=== PATIENT | male | born 1955 | race Caucasian/White ===

== ENCOUNTER 2021-05-16 12:26 | Observation (INO) | payer BC ==
[2021-05-16] MEDS: Sodium Chloride 0.9% 1,000 ML IV SCH ×3 (12:40→19:22)
[2021-05-16] MEDS ORDERED: Ondansetron 4 MG/2 ML SDV IV PRN (12:56)
[2021-05-16] MEDS ORDERED: Sodium Chloride 0.9% 10 ML Syringe FLUSH PRN (12:56)
[2021-05-16] MEDS ORDERED: Iopamidol 755 Mg/ML 75 ML Bottle IVPUSH ONE (13:25)
[2021-05-16] MEDS ORDERED: Sodium Chloride 0.9% 50 ML IV SCH (13:30)
[2021-05-16] MEDS ORDERED: 50% Dextrose in Water 50 ML Syringe IVPUSH PRN (14:08)
[2021-05-16] MEDS ORDERED: Glucagon,Human Recombinant 1 MG Vial IM PRN (14:08)
[2021-05-16] MEDS ORDERED: Acetaminophen 500 MG Tab PO PRN (14:09)
--- NOTE | 2021-05-16 14:12 | CT ---
[id number] CT/CT Abdomen Pelvis W IV EXAM: CT Abdomen Pelvis W IV CLINICAL DATA: ABDOMINAL PAIN,LEUKOCYTOSIS,DIARRHEA. COMPARISON STUDY: None. FINDINGS: Coronary artery disease. Atherosclerotic calcifications of aorta and its branches. Generalized hypodensity liver consistent with hepatic steatosis. The spleen, pancreas, adrenal glands and kidneys are unremarkable. No bowel obstruction or inflammation. Colonic diverticulosis without evidence of acute diverticulitis. The appendix is visualized and appears normal. No lymphadenopathy, free fluid, or pneumoperitoneum. Postsurgical changes following complete bilateral hip arthroplasties. Scattered changes of spondylosis the spine. No fracture or osseous lesion. IMPRESSION: No acute CT findings within the abdomen or pelvis to explain the patient's symptoms. Chronic changes as above. Tyrese Corona DO 05/16/21 1104 Thank you for allowing us to participate in the care of your patient.
[2021-05-16] MEDS ORDERED: Dicyclomine 20 MG/2 ML SDV IM ONE (17:34)
[2021-05-16] MEDS ORDERED: Loperamide 2 MG Cap PO ONE (17:38)
[2021-05-16] MEDS ORDERED: Sodium Chloride 0.9% 1,000 ML IV ONE (17:40)
[2021-05-16] MEDS: Insulin Aspart 100 Units/ML 3 ML Pen SUBCUT SCH ×2 (17:52→21:54)
[2021-05-17] MEDS: Sodium Chloride 0.9% 1,000 ML IV SCH ×4 (01:55→15:32)
[2021-05-17] MEDS: Insulin Aspart 100 Units/ML 3 ML Pen SUBCUT SCH ×3 (08:25→18:18)
[2021-05-17 09:13] LABS: ANION GAP 15.3 mmol/L (5-15); CHLORIDE,CL 106 mmol/L (98-107); SODIUM,NA 141 mmol/L (136-145)
[2021-05-17] MEDS ORDERED: GABAPENTIN 600 MG PO SCH (09:30)
[2021-05-17] MEDS: Loperamide 2 MG Cap PO PRN ×2 (09:48→16:58)
[2021-05-17] MEDS: GABAPENTIN 600 MG PO SCH ×2 (09:49→09:50)
[2021-05-17] MEDS ORDERED: Amoxicillin 500 MG Cap PO SCH (12:00)
--- NOTE | 2021-05-17 12:43 | PCM.PN ---
- General Info Date of Service: 05/17/21 Subjective Update: Patient reports feeling tired this morning. He has continued to have loose stools at times. Denies nausea, abdominal pain is improved. Functional Status: Reports: Pain Controlled, Ambulating. Denies: New Symptoms - Review of Systems General: Reports: Fatigue. Denies: Fever, Chills HEENT: Reports: No Symptoms. Denies: Headaches, Sore Throat Pulmonary: Reports: No Symptoms Cardiovascular: Reports: No Symptoms Gastrointestinal: Reports: Decreased Appetite, Diarrhea, Vomiting (none since yesterday upon admission). Denies: Abdominal Pain Genitourinary: Reports: No Symptoms Musculoskeletal: Reports: No Symptoms Skin: Reports: No Symptoms Neurological: Reports: No Symptoms Psychiatric: Reports: No Symptoms - Patient Data Vitals - Most Recent: Last Vital Signs Temp 99.3 F 05/17/21 11:00 Pulse 93 05/17/21 11:00 Resp 16 05/17/21 11:00 BP 144/84 H 05/17/21 11:00 Pulse Ox 98 05/17/21 11:00 Weight - Most Recent: 196 lb I&O - Last 24 Hours: Intake & Output 05/16/21 05/17/21 05/17/21 22:59 06:59 14:59 Intake Total 960 Balance 960 Lab Results Last 24 Hours: Laboratory Results - last 24 hr 05/16/21 05/16/21 05/16/21 Range/Units 13:03 13:30 17:25 WBC (5.00-10.00) 10^3/uL RBC (4.50-6.00) 10^6/uL Hgb (13.0-17.0) g/dL Hct (40.0-52.0) % MCV (82.0-92.0) fL MCH (27.0-31.0) pg MCHC (32.0-36.0) g/dL RDW (11.5-14.5) % Plt Count (150-400) 10^3/uL MPV (7.4-10.4) fL Immature Gran % (Auto) (0.0-5.0) % Neut % (Auto) (50.0-70.0) % Lymph % (Auto) (20.0-40.0) % Anson % (Auto) (2.0-8.0) % Eos % (Auto) (1.0-3.0) % Baso % (Auto) (0.0-1.0) % Neut # (Auto) (2.50-7.00) 10^3/uL Lymph # (Auto) (1.00-4.00) 10^3/uL Anson # (Auto) (0.10-0.80) 10^3/uL Eos # (Auto) (0.10-0.30) 10^3/uL Baso # (Auto) (0.00-0.10) 10^3/uL Immature Gran # (Auto) (0.00-0.50) 10^3/uL Sodium (136-145) mmol/L Potassium (3.5-5.1) mmol/L Chloride (98-107) mmol/L Carbon Dioxide (21.0-32.0) mmol/L Anion Gap (5-15) mmol/L BUN (7-18) mg/dL Creatinine (0.51-1.17) mg/dL Est Cr Clr Drug Dosing mL/min Estimated GFR (MDRD) mL/min Glucose (70-140) mg/dL POC Glucose 272 H (70-140) mg/dL Calcium (8.7-10.3) mg/dL Total Bilirubin (0.2-1.0) mg/dL AST (15-37) U/L ALT (14-63) U/L Alkaline Phosphatase (46-116) U/L C-Reactive Protein 1.2 H (0.0-0.9) mg/dL Total Protein (6.4-8.2) g/dL Albumin (3.40-5.00) g/dL Specimen Type Urinvoid Urine Color Yellow (YELLOW) Urine Appearance Clear (CLEAR) Urine pH 5.5 (5.0-9.0) Ur Specific [place] 1.015 (1.005-1.030) Urine Protein 30 H (NEGATIVE) mg/dL Urine Glucose (UA) >=1000 H (NEGATIVE) mg/dL Urine Ketones 15 H (NEGATIVE) mg/dL Urine Occult Blood Negative (NEGATIVE) Urine Nitrite Negative (NEGATIVE) Urine Bilirubin Negative (NEGATIVE) Urine Urobilinogen 0.2 (0.2-1.0) E.U./dL Ur Leukocyte Esterase Negative (NEGATIVE) U Hyaline Cast (Auto) Moderate Urine RBC 0-5 (0-5) /HPF Urine WBC 5-10 H (0-5) /HPF Ur Epithelial Cells Not seen /LPF Amorphous Sediment Few (0/HPF) /HPF Urine Bacteria Not seen (NONE TO FEW) /HPF Granular Casts (Auto) Few Urine Mucus Many H (NEGATIVE) /LPF 05/17/21 05/17/21 05/17/21 Range/Units 07:32 08:10 08:10 WBC 14.30 H (5.00-10.00) 10^3/uL RBC 5.84 (4.50-6.00) 10^6/uL Hgb 17.1 H (13.0-17.0) g/dL Hct 49.8 (40.0-52.0) % MCV 85.3 (82.0-92.0) fL MCH 29.3 (27.0-31.0) pg MCHC 34.3 (32.0-36.0) g/dL RDW 13.6 (11.5-14.5) % Plt Count 200 (150-400) 10^3/uL MPV 9.5 (7.4-10.4) fL Immature Gran % (Auto) 0.6 (0.0-5.0) % Neut % (Auto) 72.6 H (50.0-70.0) % Lymph % (Auto) 10.5 L (20.0-40.0) % Anson % (Auto) 8.8 H (2.0-8.0) % Eos % (Auto) 7.4 H (1.0-3.0) % Baso % (Auto) 0.1 (0.0-1.0) % Neut # (Auto) 10.39 H (2.50-7.00) 10^3/uL Lymph # (Auto) 1.50 (1.00-4.00) 10^3/uL Anson # (Auto) 1.26 H (0.10-0.80) 10^3/uL Eos # (Auto) 1.06 H (0.10-0.30) 10^3/uL Baso # (Auto) 0.01 (0.00-0.10) 10^3/uL Immature Gran # (Auto) 0.08 (0.00-0.50) 10^3/uL Sodium 141 (136-145) mmol/L Potassium 3.4 L (3.5-5.1) mmol/L Chloride 106 (98-107) mmol/L Carbon Dioxide 23.1 (21.0-32.0) mmol/L Anion Gap 15.3 H (5-15) mmol/L BUN 24 H (7-18) mg/dL Creatinine 1.13 (0.51-1.17) mg/dL Est Cr Clr Drug Dosing 65.17 mL/min Estimated GFR (MDRD) > 60 mL/min Glucose 229 H (70-140) mg/dL POC Glucose 230 H (70-140) mg/dL Calcium 7.7 L (8.7-10.3) mg/dL Total Bilirubin 0.4 (0.2-1.0) mg/dL AST 12 L (15-37) U/L ALT 17 (14-63) U/L Alkaline Phosphatase 63 (46-116) U/L C-Reactive Protein (0.0-0.9) mg/dL Total Protein 5.4 L (6.4-8.2) g/dL Albumin 2.46 L (3.40-5.00) g/dL Specimen Type Urine Color (YELLOW) Urine Appearance (CLEAR) Urine pH (5.0-9.0) Ur Specific [place] (1.005-1.030) Urine Protein (NEGATIVE) mg/dL Urine Glucose (UA) (NEGATIVE) mg/dL Urine Ketones (NEGATIVE) mg/dL Urine Occult Blood (NEGATIVE) Urine Nitrite (NEGATIVE) Urine Bilirubin (NEGATIVE) Urine Urobilinogen (0.2-1.0) E.U./dL Ur Leukocyte Esterase (NEGATIVE) U Hyaline Cast (Auto) Urine RBC (0-5) /HPF Urine WBC (0-5) /HPF Ur Epithelial Cells /LPF Amorphous Sediment (0/HPF) /HPF Urine Bacteria (NONE TO FEW) /HPF Granular Casts (Auto) Urine Mucus (NEGATIVE) /LPF 05/17/21 Range/Units 11:55 WBC (5.00-10.00) 10^3/uL RBC (4.50-6.00) 10^6/uL Hgb (13.0-17.0) g/dL Hct (40.0-52.0) % MCV (82.0-92.0) fL MCH (27.0-31.0) pg MCHC (32.0-36.0) g/dL RDW (11.5-14.5) % Plt Count (150-400) 10^3/uL MPV (7.4-10.4) fL Immature Gran % (Auto) (0.0-5.0) % Neut % (Auto) (50.0-70.0) % Lymph % (Auto) (20.0-40.0) % Anson % (Auto) (2.0-8.0) % Eos % (Auto) (1.0-3.0) % Baso % (Auto) (0.0-1.0) % Neut # (Auto) (2.50-7.00) 10^3/uL Lymph # (Auto) (1.00-4.00) 10^3/uL Anson # (Auto) (0.10-0.80) 10^3/uL Eos # (Auto) (0.10-0.30) 10^3/uL Baso # (Auto) (0.00-0.10) 10^3/uL Immature Gran # (Auto) (0.00-0.50) 10^3/uL Sodium (136-145) mmol/L Potassium (3.5-5.1) mmol/L Chloride (98-107) mmol/L Carbon Dioxide (21.0-32.0) mmol/L Anion Gap (5-15) mmol/L BUN (7-18) mg/dL Creatinine (0.51-1.17) mg/dL Est Cr Clr Drug Dosing mL/min Estimated GFR (MDRD) mL/min Glucose (70-140) mg/dL POC Glucose 185 H (70-140) mg/dL Calcium (8.7-10.3) mg/dL Total Bilirubin (0.2-1.0) mg/dL AST (15-37) U/L ALT (14-63) U/L Alkaline Phosphatase (46-116) U/L C-Reactive Protein (0.0-0.9) mg/dL Total Protein (6.4-8.2) g/dL Albumin (3.40-5.00) g/dL Specimen Type Urine Color (YELLOW) Urine Appearance (CLEAR) Urine pH (5.0-9.0) Ur Specific [place] (1.005-1.030) Urine Protein (NEGATIVE) mg/dL Urine Glucose (UA) (NEGATIVE) mg/dL Urine Ketones (NEGATIVE) mg/dL Urine Occult Blood (NEGATIVE) Urine Nitrite (NEGATIVE) Urine Bilirubin (NEGATIVE) Urine Urobilinogen (0.2-1.0) E.U./dL Ur Leukocyte Esterase (NEGATIVE) U Hyaline Cast (Auto) Urine RBC (0-5) /HPF Urine WBC (0-5) /HPF Ur Epithelial Cells /LPF Amorphous Sediment (0/HPF) /HPF Urine Bacteria (NONE TO FEW) /HPF Granular Casts (Auto) Urine Mucus (NEGATIVE) /LPF Med Orders - Current: Current Medications Acetaminophen (Acetaminophen 500 Mg Tab) 1,000 mg PO BID PRN PRN Reason: Pain Amoxicillin (Amoxicillin 500 Mg Cap) 1,000 mg PO BID [facility] Last Admin: 05/17/21 12:17 Dose: 1,000 mg Documented by: Clarithromycin (Clarithromycin 500 Mg Tab) 500 mg PO BID [facility] Last Admin: 05/17/21 12:17 Dose: 500 mg Documented by: Dextrose/Water (50% Dextrose In Water 50 Ml Syringe) 50 ml IVPUSH ASDIRECTED PRN PRN Reason: Hypoglycemia Glucagon (Glucagon,Human Recombinant 1 Mg Vial) 1 mg IM ASDIRECTED PRN PRN Reason: Hypoglycemia Sodium Chloride (Normal Saline) 1,000 mls @ 999 mls/hr IV .BOLUS [facility] Last Admin: 05/16/21 12:40 Dose: 999 mls/hr Documented by: Sodium Chloride (Normal Saline) 50 mls @ 200 mls/min IV ASDIRECTED [facility] Last Admin: 05/16/21 13:56 Dose: 200 mls/min Documented by: Sodium Chloride (Normal Saline) 1,000 mls @ 150 mls/hr IV ASDIRECTED [facility] Last Admin: 05/17/21 08:39 Dose: 150 mls/hr Documented by: Insulin Aspart (Insulin Aspart 100 Units/Ml 3 Ml Pen) 0 unit SUBCUT WITHMEALSA NDBED [facility]; Protocol Last Admin: 05/17/21 08:25 Dose: 2 unit Documented by: Loperamide HCl (Loperamide 2 Mg Cap) 2 mg PO Q2H PRN PRN Reason: Diarrhea Last Admin: 05/17/21 09:48 Dose: 2 mg Documented by: Gabapentin 600 Mg (Tablet - Ptom) 600 mg PO BID [facility] Last Admin: 05/17/21 09:48 Dose: 600 mg Documented by: Omepraz[facility] ([facility] Mg Cap.Cr) [facility] Ondans[facility]ron HCl (Ondansetron 4 Mg/2 Ml Sdv) 4 mg IV Q6H PRN PRN Reason: Nausea/Vomiting Last Admin: 05/16/21 17:10 Dose: 4 mg Documented by: Sodium Chloride (Sodium Chloride 0.9% 10 Ml Syringe) 10 ml FLUSH Q8HR PRN PRN Reason: keep vein open Discontinued Medications Dicyclomine HCl (Dicyclomine 20 Mg/2 Ml Sdv) 20 mg IM ONETIME ONE Stop: 05/16/21 17:35 Last Admin: 05/16/21 17:54 Dose: 20 mg Documented by: Sodium Chloride (Normal Saline) 1,000 mls @ 999 mls/hr IV .BOLUS ONE Stop: 05/16/21 18:40 Last Admin: 05/16/21 18:18 Dose: 999 mls/hr Documented by: Iopamidol (Iopamidol 755 Mg/Ml 75 Ml Bottle) 75 ml IVPUSH ONETIME ONE Stop: 05/16/21 13:26 Last Admin: 05/16/21 13:56 Dose: 75 ml Documented by: Loperamide HCl (Loperamide 2 Mg Cap) 4 mg PO ONETIME ONE Stop: 05/16/21 17:39 Last Admin: 05/16/21 17:50 Dose: 4 mg Documented by: Gabapentin 600 Mg (Tablet - Ptom) 600 mg PO BID [facility] Last Admin: 05/17/21 09:50 Dose: Not Given Documented by: - Exam Quality Assessment: No: Supplemental Oxygen General: Alert, Oriented, Cooperative, No Acute Distress HEENT: Pupils Equal, Mucous Membr. Moist/Stuckey Neck: Supple, Trachea Midline Lungs: Clear to Auscultation, Normal Respiratory Effort. No: Crackles, Rales, Wheezing Cardiovascular: Regular Rate, Regular Rhythm, No Murmurs GI/Abdominal Exam: Soft, Non-Tender, No Distention, Abnormal Bowel Sounds (hyperactive) (Male) Exam: Deferred Back Exam: Normal Inspection, Full Range of Motion Extremities: Normal Inspection, Normal Range of Motion, Non-Tender, No Pedal E cyndie, Normal Capillary Refill Peripheral Pulses: 2+: Dorsalis Pedis (L), Dorsalis Pedis (R) Skin: Warm, Dry, Intact Neurological: No New Focal Deficit Psy/Mental Status: Alert, Normal Affect, Normal Mood - Patient Data Lab Results Last 24 hrs: Laboratory Results - last 24 hr 05/16/21 05/16/21 05/16/21 Range/Units 13:03 13:30 17:25 WBC (5.00-10.00) 10^3/uL RBC (4.50-6.00) 10^6/uL Hgb (13.0-17.0) g/dL Hct (40.0-52.0) % MCV (82.0-92.0) fL MCH (27.0-31.0) pg MCHC (32.0-36.0) g/dL RDW (11.5-14.5) % Plt Count (150-400) 10^3/uL MPV (7.4-10.4) fL Immature Gran % (Auto) (0.0-5.0) % Neut % (Auto) (50.0-70.0) % Lymph % (Auto) (20.0-40.0) % Anson % (Auto) (2.0-8.0) % Eos % (Auto) (1.0-3.0) % Baso % (Auto) (0.0-1.0) % Neut # (Auto) (2.50-7.00) 10^3/uL Lymph # (Auto) (1.00-4.00) 10^3/uL Anson # (Auto) (0.10-0.80) 10^3/uL Eos # (Auto) (0.10-0.30) 10^3/uL Baso # (Auto) (0.00-0.10) 10^3/uL Immature Gran # (Auto) (0.00-0.50) 10^3/uL Sodium (136-145) mmol/L Potassium (3.5-5.1) mmol/L Chloride (98-107) mmol/L Carbon Dioxide (21.0-32.0) mmol/L Anion Gap (5-15) mmol/L BUN (7-18) mg/dL Creatinine (0.51-1.17) mg/dL Est Cr Clr Drug Dosing mL/min Estimated GFR (MDRD) mL/min Glucose (70-140) mg/dL POC Glucose 272 H (70-140) mg/dL Calcium (8.7-10.3) mg/dL Total Bilirubin (0.2-1.0) mg/dL AST (15-37) U/L ALT (14-63) U/L Alkaline Phosphatase (46-116) U/L C-Reactive Protein 1.2 H (0.0-0.9) mg/dL Total Protein (6.4-8.2) g/dL Albumin (3.40-5.00) g/dL Specimen Type Urinvoid Urine Color Yellow (YELLOW) Urine Appearance Clear (CLEAR) Urine pH 5.5 (5.0-9.0) Ur Specific [place] 1.015 (1.005-1.030) Urine Protein 30 H (NEGATIVE) mg/dL Urine Glucose (UA) >=1000 H (NEGATIVE) mg/dL Urine Ketones 15 H (NEGATIVE) mg/dL Urine Occult Blood Negative (NEGATIVE) Urine Nitrite Negative (NEGATIVE) Urine Bilirubin Negative (NEGATIVE) Urine Urobilinogen 0.2 (0.2-1.0) E.U./dL Ur Leukocyte Esterase Negative (NEGATIVE) U Hyaline Cast (Auto) Moderate Urine RBC 0-5 (0-5) /HPF Urine WBC 5-10 H (0-5) /HPF Ur Epithelial Cells Not seen /LPF Amorphous Sediment Few (0/HPF) /HPF Urine Bacteria Not seen (NONE TO FEW) /HPF Granular Casts (Auto) Few Urine Mucus Many H (NEGATIVE) /LPF 05/17/21 05/17/21 05/17/21 Range/Units 07:32 08:10 08:10 WBC 14.30 H (5.00-10.00) 10^3/uL RBC 5.84 (4.50-6.00) 10^6/uL Hgb 17.1 H (13.0-17.0) g/dL Hct 49.8 (40.0-52.0) % MCV 85.3 (82.0-92.0) fL MCH 29.3 (27.0-31.0) pg MCHC 34.3 (32.0-36.0) g/dL RDW 13.6 (11.5-14.5) % Plt Count 200 (150-400) 10^3/uL MPV 9.5 (7.4-10.4) fL Immature Gran % (Auto) 0.6 (0.0-5.0) % Neut % (Auto) 72.6 H (50.0-70.0) % Lymph % (Auto) 10.5 L (20.0-40.0) % Anson % (Auto) 8.8 H (2.0-8.0) % Eos % (Auto) 7.4 H (1.0-3.0) % Baso % (Auto) 0.1 (0.0-1.0) % Neut # (Auto) 10.39 H (2.50-7.00) 10^3/uL Lymph # (Auto) 1.50 (1.00-4.00) 10^3/uL Anson # (Auto) 1.26 H (0.10-0.80) 10^3/uL Eos # (Auto) 1.06 H (0.10-0.30) 10^3/uL Baso # (Auto) 0.01 (0.00-0.10) 10^3/uL Immature Gran # (Auto) 0.08 (0.00-0.50) 10^3/uL Sodium 141 (136-145) mmol/L Potassium 3.4 L (3.5-5.1) mmol/L Chloride 106 (98-107) mmol/L Carbon Dioxide 23.1 (21.0-32.0) mmol/L Anion Gap 15.3 H (5-15) mmol/L BUN 24 H (7-18) mg/dL Creatinine 1.13 (0.51-1.17) mg/dL Est Cr Clr Drug Dosing 65.17 mL/min Estimated GFR (MDRD) > 60 mL/min Glucose 229 H (70-140) mg/dL POC Glucose 230 H (70-140) mg/dL Calcium 7.7 L (8.7-10.3) mg/dL Total Bilirubin 0.4 (0.2-1.0) mg/dL AST 12 L (15-37) U/L ALT 17 (14-63) U/L Alkaline Phosphatase 63 (46-116) U/L C-Reactive Protein (0.0-0.9) mg/dL Total Protein 5.4 L (6.4-8.2) g/dL Albumin 2.46 L (3.40-5.00) g/dL Specimen Type Urine Color (YELLOW) Urine Appearance (CLEAR) Urine pH (5.0-9.0) Ur Specific [place] (1.005-1.030) Urine Protein (NEGATIVE) mg/dL Urine Glucose (UA) (NEGATIVE) mg/dL Urine Ketones (NEGATIVE) mg/dL Urine Occult Blood (NEGATIVE) Urine Nitrite (NEGATIVE) Urine Bilirubin (NEGATIVE) Urine Urobilinogen (0.2-1.0) E.U./dL Ur Leukocyte Esterase (NEGATIVE) U Hyaline Cast (Auto) Urine RBC (0-5) /HPF Urine WBC (0-5) /HPF Ur Epithelial Cells /LPF Amorphous Sediment (0/HPF) /HPF Urine Bacteria (NONE TO FEW) /HPF Granular Casts (Auto) Urine Mucus (NEGATIVE) /LPF 05/17/21 Range/Units 11:55 WBC (5.00-10.00) 10^3/uL RBC (4.50-6.00) 10^6/uL Hgb (13.0-17.0) g/dL Hct (40.0-52.0) % MCV (82.0-92.0) fL MCH (27.0-31.0) pg MCHC (32.0-36.0) g/dL RDW (11.5-14.5) % Plt Count (150-400) 10^3/uL MPV (7.4-10.4) fL Immature Gran % (Auto) (0.0-5.0) % Neut % (Auto) (50.0-70.0) % Lymph % (Auto) (20.0-40.0) % Anson % (Auto) (2.0-8.0) % Eos % (Auto) (1.0-3.0) % Baso % (Auto) (0.0-1.0) % Neut # (Auto) (2.50-7.00) 10^3/uL Lymph # (Auto) (1.00-4.00) 10^3/uL Anson # (Auto) (0.10-0.80) 10^3/uL Eos # (Auto) (0.10-0.30) 10^3/uL Baso # (Auto) (0.00-0.10) 10^3/uL Immature Gran # (Auto) (0.00-0.50) 10^3/uL Sodium (136-145) mmol/L Potassium (3.5-5.1) mmol/L Chloride (98-107) mmol/L Carbon Dioxide (21.0-32.0) mmol/L Anion Gap (5-15) mmol/L BUN (7-18) mg/dL Creatinine (0.51-1.17) mg/dL Est Cr Clr Drug Dosing mL/min Estimated GFR (MDRD) mL/min Glucose (70-140) mg/dL POC Glucose 185 H (70-140) mg/dL Calcium (8.7-10.3) mg/dL Total Bilirubin (0.2-1.0) mg/dL AST (15-37) U/L ALT (14-63) U/L Alkaline Phosphatase (46-116) U/L C-Reactive Protein (0.0-0.9) mg/dL Total Protein (6.4-8.2) g/dL Albumin (3.40-5.00) g/dL Specimen Type Urine Color (YELLOW) Urine Appearance (CLEAR) Urine pH (5.0-9.0) Ur Specific [place] (1.005-1.030) Urine Protein (NEGATIVE) mg/dL Urine Glucose (UA) (NEGATIVE) mg/dL Urine Ketones (NEGATIVE) mg/dL Urine Occult Blood (NEGATIVE) Urine Nitrite (NEGATIVE) Urine Bilirubin (NEGATIVE) Urine Urobilinogen (0.2-1.0) E.U./dL Ur Leukocyte Esterase (NEGATIVE) U Hyaline Cast (Auto) Urine RBC (0-5) /HPF Urine WBC (0-5) /HPF Ur Epithelial Cells /LPF Amorphous Sediment (0/HPF) /HPF Urine Bacteria (NONE TO FEW) /HPF Granular Casts (Auto) Urine Mucus (NEGATIVE) /LPF Result Diagrams: 05/17/21 08:10 05/17/21 08:10 Sepsis Event Note - Evaluation Sepsis Screening Result: No Definite Risk - Focused Exam Vital Signs: Vital Signs Temp Pulse Resp BP Pulse Ox 05/17/21 11:00 99.3 F 93 16 144/84 H 98 05/17/21 06:31 97.5 F 97 20 114/87 93 L 05/17/21 03:00 97.5 F 106 H 20 120/81 94 L - Problem List Review Problem List Initiated/Reviewed/Updated: Yes - My Orders Last 24 Hours: My Active Orders 05/17/21 Lunch Full Liquid Diet [DIET] Amoxicillin [Amoxil] 1,000 mg PO BID Clarithromycin [Biaxin] 500 mg PO BID 05/17/21 17:30 Omeprazole 40 mg PO BIDAC - Plan Plan:: HPI summary: Pan is a 65 year old male patient who was directly admitted per Latoya Porter APRN, CNP from the [facility] yesterday for abdominal pain, nausea/vomiting and diarrhea. Patient had a bout of diarrhea that started 6 days ago and then resolved. He was tested for COVID at that time and this was negative. Patient experienced onset of abdominal symptoms overnight on 05/15/21 with recurrence of watery diarrhea x 3 overnight into the morning of 05/16. Patient vomited on arrival to clinic and was noted to have mild abdominal distension. Denied fever and chills. Patient admitted on observation status to the [facility] for dehydration with the abdominal pain. IV fluids were initiated with an NS bolus and then NS at 150ml/hr. Patient initially NPO for CT abdomen/pelvis with contrast. Diabetes medications placed on hold upon admission with blood sugar checks with a low-dose sliding scale for hyperglycemia coverage. Zofran PRN nausea. Stool sample for C. diff and culture pending. CRP on admission. Hospital course: 05/17/21: CT abdomen pelvis was negative for acute findings. CAD, hepatitic steatosis, diverticulosis without evidence of diverticulitis reported. WBC essentially unchanged this morning 14.30, Hgb 17.1, plt 200 which are improved from prior to admission at WBC 14.4, Hgb 19.3. BUN 24, Creatinine improved today at 1.13 from 1.34, GFR normal > 60 improved from 54. Na 141, K 3.4 today. Stool cultures negative for C-diff x 2 today. CRP not overly impressive at 1.2. Stool cultures pending. H. pylori test came back positive today. Hospitalization problems and plan: # Dehydration; improving. # Abdominal pain; improved. Patient was given a one time dose of bentyl overnight with improvement in symptoms. # Nausea/vomiting; improved. # H. pylori - Will continue IV fluids today - renal indices improved, however lab results indicate hemoconcentration. - Will start patient on triple therapy for H. pylori of omeprazole 40mg PO BID, clarithromycin 500mg PO BID & amoxicillin 1000mg PO BID x 14 day course - Will plan to complete stool testing to ensure clearance of H. pylori as outpatient following completion of treatment - Advance diet as tolerated today Chronic, stable conditions: # Hypertension - takes enalapril 5mg PO BID, trimterene/HCTZ 37.5/25mg PO daily # Aortic atherosclerosis # DM II without complication - metformin 1000mg PO BID, ozempic 1mg sub-q once weekly (HOLD) - on sliding scale insulin while hospitalized # Mixed hyperlipidemia # Lumbar radiculopathy - takes gabapentin 600mg PO BID # Lumbar degenerative disc disease # Spinal stenosis of lumbar spine with neurogenic claudication # s/p lumbar laminectomy # hepatic steatosis # Diverticulosis # Osteoarthritis - takes tylenol 1000mg PO BID PRN pain # Facet joint syndrome # Obesity, BMI 30-39 Hospitalization details: # FEN: IVF NS @ 150ml/hr, electrolytes stable, will advance to clears/fulls today and ADAT # PPX: Omeprazole 40mg PO daily # Code status: FULL CODE # Emergency contact: Maritza [phone] # Disposition: Will continue IV hydration and advance diet as tolerated today. Possible discharge home later this afternoon/evening or anticipate tomorrow morning with repeat labs for further monitoring of dehydration and renal fun ction. Plan to discharge patient with bentyl 20mg Q6H PRN x 10 tablets for anti-spasmotic effect.
[2021-05-17] MEDS ORDERED: Omeprazole 20 MG Cap.CR PO SCH ×2 (17:30→21:00)
[2021-05-17] MEDS ORDERED: Sodium Chloride 0.9% 1,000 ML IV SCH (17:30)
--- NOTE | 2021-05-17 19:13 | PCM.DCSUM1 ---
Discharge Summary - Hospital Course Free Text/Narrative:: Date of admission: 05/16/21 Date of discharge: 05/17/21 Admission diagnoses: # Dehydration # Abdominal pain # Nausea/vomiting # H. pylori Discharge diagnoses: # Hypertension - takes enalapril 5mg PO BID, trimterene/HCTZ 37.5/25mg PO daily # Aortic atherosclerosis # DM II without complication - metformin 1000mg PO BID, ozempic 1mg sub-q once weekly (HOLD) - on sliding scale insulin while hospitalized # Mixed hyperlipidemia # Lumbar radiculopathy - takes gabapentin 600mg PO BID # Lumbar degenerative disc disease # Spinal stenosis of lumbar spine with neurogenic claudication # s/p lumbar laminectomy # hepatic steatosis # Diverticulosis # H.pylori # Osteoarthritis - takes tylenol 1000mg PO BID PRN pain # Facet joint syndrome # Obesity, BMI 30-39 HPI summary: Pan is a 65 year old male patient who was directly admitted per Latoya Porter APRN, CNP from the [facility] yesterday for abdominal pain, nausea/vomiting and diarrhea. Patient had a bout of diarrhea that started 6 days ago and then resolved. He was tested for COVID at that time and this was negative. Patient experienced onset of abdominal symptoms overnight on 05/15/21 with recurrence of watery diarrhea x 3 overnight into the morning of 05/16. Patient vomited on arrival to clinic and was noted to have mild abdominal distension. Denied fever and chills. Patient admitted on observation status to the [facility] for dehydration with the abdominal pain. IV fluids were initiated with an NS bolus and then NS at 150ml/hr. Patient initially NPO for CT abdomen/pelvis with contrast. Diabetes medications placed on hold upon admission with blood sugar checks with a low-dose sliding scale for hyperglycemia coverage. Zofran PRN nausea. Stool sample for C. diff and cul ture pending. CRP on admission. Hospital course: 05/17/21: CT abdomen pelvis was negative for acute findings. CAD, hepatitic steatosis, diverticulosis without evidence of diverticulitis reported. WBC essentially unchanged this morning 14.30, Hgb 17.1, plt 200 which are improved from prior to admission at WBC 14.4, Hgb 19.3. BUN 24, Creatinine improved today at 1.13 from 1.34, GFR normal > 60 improved from 54. Na 141, K 3.4 today. Stool cultures negative for C-diff x 2 today. CRP not overly impressive at 1.2. Stool cultures pending. H. pylori test came back positive today. Triple therapy initiated today for treatment and will plan to complete stool testing upon completion to ensure clearance of H.pylori. Patient opted to discharge home this evening rather than staying overnight for IV fluids as he had indicated earlier today. Will discharge home with return precautions for any concerns of dehydration or recurrence of abdominal symptoms which prompted clinic evaluation and subsequent hospitalization. Discharge and follow-up recommendations: - Discharge to home per self care - New medications at discharge: Amoxicillin 1000mg PO BID x 14 days, clarithromycin 500mg PO BID x 14 days, omeprazole 40mg PO BID x 14 days. Immodium 2mg PRN diarrhea as directed. (Patient to hold lipitor until completes course of clarithromycin to decrease risk of drug induced rhabdomyolysis) - Follow-up with Latoya Porter APRN, CNP or Manuela Khalil APRN, CNP at the end of this week or Sunday at the latest for hospital follow-up and repeat lab. Push fluids to prevent dehydration. - Discharge Data Discharge Date: 05/17/21 Discharge Disposition: Home, Self-Care 01 Condition: Good - Referral to Home Health Primary Care Physician: PCP None - Patient Instructions Diet: Diabetic Diet Diet, Other: Push oral fluids to prevent dehydration - Discharge Plan *PRESCRIPTION DRUG MONITORING PROGRAM REVIEWED*: Not Applicable *COPY OF PRESCRIPTION DRUG MONITORING REPORT IN PATIENT BASILIO: Not Applicable Home Medications: Home Meds Acetaminophen [Tylenol Extra Strength] 1,000 mg PO BID PRN 08/01/18 [History] Enalapril [Vasotec] 5 mg PO BID 08/01/18 [History] Multivitamin [Multivitamins] 1 each PO DAILY 08/01/18 [History] Rup Rub 1 applic TOP TID PRN 08/01/18 [History] Triamterene/Hydrochlorothiazid [Triamterene-HCTZ 37.5-25 MG] 1 cap PO DAILY 08/01/18 [History] metFORMIN [Glucophage] 1,000 mg PO BIDMEALS 08/01/18 [History] Gabapentin [Neurontin] 600 mg PO BID 05/16/21 [History] Clarithromycin [Biaxin] 500 mg PO BID tablet 05/17/21 [Rx] Insulin Aspart [NovoLOG] 0 unit SUBCUT WITHMEALSANDBED pen 05/17/21 [Rx] Loperamide [Imodium] 2 mg PO Q2H PRN cap 05/17/21 [Rx] Omeprazole 40 mg PO BIDAC cap.cr 05/17/21 [Rx] Semaglutide [Ozempic] 1 mg SQ WEEKLY 05/17/21 [History] Oxygen Therapy Mode: Room Air Referrals: Latoya Porter LINE LEADER [Nurse Practitioner] - (Please call [facility] to schedule a follow-up appointment with Latoya Porter APRN or Manuela Khalil APRN later this week or early next week. ) - Discharge Summary/Plan Comment DC Time >30 min.: Yes Total # of Minutes for Discharge Time: 40 - General Info Date of Service: 05/17/21 Subjective Update: See subjective data on progress note from today - Patient Data Vitals - Most Recent: Last Vital Signs Temp 97.2 F 05/17/21 15:00 Pulse 100 05/17/21 15:00 Resp 16 05/17/21 15:00 BP 159/86 H 05/17/21 15:00 Pulse Ox 98 05/17/21 15:00 Weight - Most Recent: 196 lb I&O - Last 24 hours: Intake & Output 05/17/21 05/17/21 05/17/21 06:59 14:59 22:59 Intake Total 430 242 3542 Balance 076 584 2362 Lab Results - Last 24 hrs: Laboratory Results - last 24 hr 05/17/21 05/17/21 05/17/21 Range/Units 07:32 08:10 08:10 WBC 14.30 H (5.00-10.00) 10^3/uL RBC 5.84 (4.50-6.00) 10^6/uL Hgb 17.1 H (13.0-17.0) g/dL Hct 49.8 (40.0-52.0) % MCV 85.3 (82.0-92.0) fL MCH 29.3 (27.0-31.0) pg MCHC 34.3 (32.0-36.0) g/dL RDW 13.6 (11.5-14.5) % Plt Count 200 (150-400) 10^3/uL MPV 9.5 (7.4-10.4) fL Immature Gran % (Auto) 0.6 (0.0-5.0) % Neut % (Auto) 72.6 H (50.0-70.0) % Lymph % (Auto) 10.5 L (20.0-40.0) % [place] % (Auto) 8.8 H (2.0-8.0) % Eos % (Auto) 7.4 H (1.0-3.0) % Baso % (Auto) 0.1 (0.0-1.0) % Neut # (Auto) 10.39 H (2.50-7.00) 10^3/uL Lymph # (Auto) 1.50 (1.00-4.00) 10^3/uL [place] # (Auto) 1.26 H (0.10-0.80) 10^3/uL Eos # (Auto) 1.06 H (0.10-0.30) 10^3/uL Baso # (Auto) 0.01 (0.00-0.10) 10^3/uL Immature Gran # (Auto) 0.08 (0.00-0.50) 10^3/uL Sodium 141 (136-145) mmol/L Potassium 3.4 L (3.5-5.1) mmol/L Chloride 106 (98-107) mmol/L Carbon Dioxide 23.1 (21.0-32.0) mmol/L Anion Gap 15.3 H (5-15) mmol/L BUN 24 H (7-18) mg/dL Creatinine 1.13 (0.51-1.17) mg/dL Est Cr Clr Drug Dosing 65.17 mL/min Estimated GFR (MDRD) > 60 mL/min Glucose 229 H (70-140) mg/dL POC Glucose 230 H (70-140) mg/dL Calcium 7.7 L (8.7-10.3) mg/dL Total Bilirubin 0.4 (0.2-1.0) mg/dL AST 12 L (15-37) U/L ALT 17 (14-63) U/L Alkaline Phosphatase 63 (46-116) U/L Total Protein 5.4 L (6.4-8.2) g/dL Albumin 2.46 L (3.40-5.00) g/dL 05/17/21 05/17/21 Range/Units 11:55 17:54 WBC (5.00-10.00) 10^3/uL RBC (4.50-6.00) 10^6/uL Hgb (13.0-17.0) g/dL Hct (40.0-52.0) % MCV (82.0-92.0) fL MCH (27.0-31.0) pg MCHC (32.0-36.0) g/dL RDW (11.5-14.5) % Plt Count (150-400) 10^3/uL MPV (7.4-10.4) fL Immature Gran % (Auto) (0.0-5.0) % Neut % (Auto) (50.0-70.0) % Lymph % (Auto) (20.0-40.0) % [place] % (Auto) (2.0-8.0) % Eos % (Auto) (1.0-3.0) % Baso % (Auto) (0.0-1.0) % Neut # (Auto) (2.50-7.00) 10^3/uL Lymph # (Auto) (1.00-4.00) 10^3/uL [place] # (Auto) (0.10-0.80) 10^3/uL Eos # (Auto) (0.10-0.30) 10^3/uL Baso # (Auto) (0.00-0.10) 10^3/uL Immature Gran # (Auto) (0.00-0.50) 10^3/uL Sodium (136-145) mmol/L Potassium (3.5-5.1) mmol/L Chloride (98-107) mmol/L Carbon Dioxide (21.0-32.0) mmol/L Anion Gap (5-15) mmol/L BUN (7-18) mg/dL Creatinine (0.51-1.17) mg/dL Est Cr Clr Drug Dosing mL/min Estimated GFR (MDRD) mL/min Glucose (70-140) mg/dL POC Glucose 185 H 185 H (70-140) mg/dL Calcium (8.7-10.3) mg/dL Total Bilirubin (0.2-1.0) mg/dL AST (15-37) U/L ALT (14-63) U/L Alkaline Phosphatase (46-116) U/L Total Protein (6.4-8.2) g/dL Albumin (3.40-5.00) g/dL [id number] Results - Last 24 hrs: Microbiology 05/16/21 14:23 Clostridioides difficile Antigen - Final Stool / Feces NEGATIVE CDIFF AG REFERENCE RANGE: NEGATIVE Clostridioides difficile Toxin Assay - Final NEGATIVE CDIFF TOXIN REFERENCE RANGE: NEGATIVE Med Orders - Current: Current Medications Acetaminophen (Acetaminophen 500 Mg Tab) 1,000 mg PO BID PRN PRN Reason: Pain Amoxicillin (Amoxicillin 500 Mg Cap) 1,000 mg PO BID [facility] Last Admin: 05/17/21 12:17 Dose: 1,000 mg Documented by: Clarithromycin (Clarithromycin 500 Mg Tab) 500 mg PO BID [facility] Last Admin: 05/17/21 12:17 Dose: 500 mg Documented by: Dextrose/Water (50% Dextrose In Water 50 Ml Syringe) 50 ml IVPUSH ASDIRECTED PRN PRN Reason: Hypoglycemia Glucagon (Glucagon,Human Recombinant 1 Mg Vial) 1 mg IM ASDIRECTED PRN PRN Reason: Hypoglycemia Sodium Chloride (Normal Saline) 1,000 mls @ 999 mls/hr IV .BOLUS [facility] Last Infusion: 05/16/21 13:41 Dose: Infused Documented by: Sodium Chloride (Normal Saline) 50 mls @ 200 mls/min IV ASDIRECTED [facility] Last Admin: 05/16/21 13:56 Dose: 200 mls/min Documented by: Sodium Chloride (Normal Saline) 1,000 mls @ 100 mls/hr IV ASDIRECTED [facility] Insulin Aspart (Insulin Aspart 100 Units/Ml 3 Ml Pen) 0 unit SUBCUT WITHMEALSANDBED [facility]; Protocol Last Admin: 05/17/21 18:18 Dose: 1 unit Documented by: Loperamide HCl (Loperamide 2 Mg Cap) 2 mg PO Q2H PRN PRN Reason: Diarrhea Last Admin: 05/17/21 16:58 Dose: 2 mg Documented by: Gabapentin 600 Mg (Tablet - Ptom) 600 mg PO BID [facility] Last Admin: 05/17/21 09:48 Dose: 600 mg Documented by: Omeprazole (Omeprazole 20 Mg Cap.Cr) 40 mg PO BIDAC [facility] Last Admin: 05/17/21 16:59 Dose: 40 mg Documented by: Ondansetron HCl (Ondansetron 4 Mg/2 Ml Sdv) 4 mg IV Q6H PRN PRN Reason: Nausea/Vomiting Last Admin: 05/16/21 17:10 Dose: 4 mg Documented by: Sodium Chloride (Sodium Chloride 0.9% 10 Ml Syringe) 10 ml FLUSH Q8HR PRN PRN Reason: keep vein open Discontinued Medications Dicyclomine HCl (Dicyclomine 20 Mg/2 Ml Sdv) 20 mg IM ONETIME ONE Stop: 05/16/21 17:35 Last Admin: 05/16/21 17:54 Dose: 20 mg Documented by: Sodium Chloride (Normal Saline) 1,000 mls @ 150 mls/hr IV ASDIRECTED [facility] Last Infusion: 05/17/21 17:40 Dose: 100 mls/hr Documented by: Sodium Chloride (Normal Saline) 1,000 mls @ 999 mls/hr IV .BOLUS ONE Stop: 05/16/21 18:40 Last Admin: 05/16/21 18:18 Dose: 999 mls/hr Documented by: Iopamidol (Iopamidol 755 Mg/Ml 75 Ml Bottle) 75 ml IVPUSH ONETIME ONE Stop: 05/16/21 13:26 Last Admin: 05/16/21 13:56 Dose: 75 ml Documented by: Loperamide HCl (Loperamide 2 Mg Cap) 4 mg PO ONETIME ONE Stop: 05/16/21 17:39 Last Admin: 05/16/21 17:50 Dose: 4 mg Documented by: Gabapentin 600 Mg (Tablet - Ptom) 600 mg PO BID [facility] Last Admin: 05/17/21 09:50 Dose: Not Given Documented by: Comments:: see objective exam data from progress note from today
[2021-05-17] MEDS ORDERED: Amoxicillin 500 MG Cap PO ONE (19:16)
[2021-05-17] MEDS ORDERED: Loperamide 2 MG Cap PO ONE (19:34)
== END 2021-05-17 20:40 | disposition home or self-care (01) ==
LOC: KA.MS 12:26
PROVIDERS: ADMIT Nurse Practitioner Family; ATTEND Family Medicine
DX: R19.7 Diarrhea, unspecified (principal); R11.2 Nausea with vomiting, unspecified; E86.0 Dehydration; I10 Essential (primary) hypertension; E11.9 Type 2 diabetes mellitus without complications; G89.29 Other chronic pain; E78.2 Mixed hyperlipidemia; E66.9 Obesity, unspecified; B96.81 Helicobacter pylori [H. pylori] as the cause of diseases classified elsewhere; I70.0 Atherosclerosis of aorta; K57.30 Diverticulosis of large intestine without perforation or abscess without bleeding; M51.16 Intervertebral disc disorders with radiculopathy, lumbar region; M48.062 Spinal stenosis, lumbar region with neurogenic claudication; Z98.890 Other specified postprocedural states; Z79.899 Other long term (current) drug therapy
CPT/HCPCS: 36415; 74177; 80053; 81001; 82947; 85025; 86140; 87045; 87046; 87324; 87449; 87493; 96372; 96374; A9270-GY; G0378; G0379; J0500; J1815-GY; J2405; J7030; Q9967

== ENCOUNTER 2025-08-06 06:37 | Emergency (ER) | payer MEDICARE | END 2025-08-06 07:51 | disposition home or self-care (01) | LOC: KA.ED 06:37 | DX: M62.830 Muscle spasm of back (principal); G58.9 Mononeuropathy, unspecified; I10 Essential (primary) hypertension; E78.00 Pure hypercholesterolemia, unspecified; M19.90 Unspecified osteoarthritis, unspecified site; E66.9 Obesity, unspecified; Z68.32 Body mass index [BMI] 32.0-32.9, adult; Z79.82 Long term (current) use of aspirin; Z79.84 Long term (current) use of oral hypoglycemic drugs; Z79.899 Other long term (current) drug therapy | CPT/HCPCS: 99284 ==